=== PATIENT | female | born 1980 | race Two or more races ===

== ENCOUNTER 2019-12-28 13:57 | Outpatient (CLI) | payer OTHER ==
[~2019-12-28] VITALS: Ht 170.2 cm; Wt 81.6 kg
== END 2019-12-28 16:43 | disposition home or self-care (01) ==
LOC: OFIC 805 13:57
PROVIDERS: ATTEND Otolaryngology Otology & Neurotology
DX: H92.02 Otalgia, left ear (principal); H60.392 Other infective otitis externa, left ear

== ENCOUNTER → 2020-05-02 | Outpatient (CLI) | payer OTHER | END | disposition home or self-care (01) | LOC: OFIC 805 13:00 | PROVIDERS: ATTEND Otolaryngology Otology & Neurotology | DX: H60.392 Other infective otitis externa, left ear (principal); K21.9 Gastro-esophageal reflux disease without esophagitis; J02.8 Acute pharyngitis due to other specified organisms ==